=== PATIENT | male | born 1925 | race Caucasian/White ===

== ENCOUNTER 2017-02-23 06:52 | Inpatient (IN) | payer MEDICARE, BC ==
[~2017-02-23 06:52] MED LIST: Lactated Ringers 1,000 ML IV SCH; Lidocaine 1%/Sod Bicarbonate in NS 8.4% 1 ML Syringe IV PRN; Sodium Chloride 0.9% 10 ML Syringe FLUSH PRN
[2017-02-23] MEDS ORDERED: Ropivacaine 0.5% 5 MG/ML 30 ML SDV ONE (07:10)
[2017-02-23] MEDS ORDERED: EPINEPHrine 1:1000 1 MG/ML SDV ONE (07:10)
--- NOTE | 2017-02-23 07:21 | PCM.PREANE ---
Preanesthetic Assessment - Anesthesia/Transfusion/Family Hx Anesthesia History: Prior Anesthesia Without Reaction Family History of Anesthesia Reaction: No Transfusion History: Prior Transfusion Without Reaction Intubation History: Unknown - Review of Systems General: No Symptoms Pulmonary: No Symptoms Cardiovascular: Dyspnea on Exertion (< 4 mets ) Gastrointestinal: No symptoms Neurological: Numbness (left hand, intermittent ) Other: Reports: None (x hypothyroidism ) - Physical Assessment NPO Status Date: 02/22/17 NPO Status Time: 21:00 Pulse: 59 O2 Sat by Pulse Oximetry: 94 Respiratory Rate: 16 Blood Pressure: 153/98 Temperature: 36.0 C Height: 1.73 m Weight: 55.883 kg ASA Class: 3 Mental Status: Alert & Oriented x3 Airway Class: Mallampati = 2 Dentition: Reports: Broken Tooth/Teeth (poor dentition), Missing Tooth/Teeth, Caries Thyro-Mental Finger Breadths: 3 Mouth Opening Finger Breadths: 5 ROM/Head Extension: Full Lungs: Other (diminished throughout ) Cardiovascular: No Murmurs, Bradycardia - Lab Values: Laboratory Last Values MRSA (PCR) Negative 02/11/17 12:27 - Allergies Allergies/Adverse Reactions: Allergies Allergy/AdvReac Type Severity Reaction Status Date / Time SURGICAL SOAP Allergy Rash Uncoded 02/20/17 11:06 - Blood Blood Available: No - Acknowledgements Anesthesia Type Planned: General Anesthesia (with intrascalene block for post op pain control ) Pt an Appropriate Candidate for the Planned Anesthesia: Yes Alternatives and Risks of Anesthesia Discussed w Pt/Guardian: Yes Pt/Guardian Understands and Agrees with Anesthesia Plan: Yes PreAnesthesia Questionnaire HEENT History: Reports: Cataract, Glaucoma, Impaired Vision, Other (See Below) Other HEENT History: wears glasses Cardiovascular History: Reports: Other (See Below) Other Cardiovascular History: chest pain Respiratory History: Reports: None Gastrointestinal History: Reports: Other (See Below) Other Gastrointestinal History: gastric ulcer with hemorrhage Genitourinary History: Reports: None [employer] History: Reports: None Musculoskeletal History: Reports: Osteoarthritis Neurological History: Reports: None Psychiatric History: Reports: None Endocrine/Metabolic History: Reports: Hypothyroidism Hematologic History: Reports: None Immunologic History: Reports: None Oncologic (Cancer) History: Reports: None Dermatologic History: Reports: None - Past Surgical History Head Surgeries/Procedures: Reports: None HEENT Surgical History: Reports: Cataract Surgery GI Surgical History: Reports: Bariatric Procedure, Hernia Repair/Other Musculoskeletal Surgical History: Reports: Shoulder Surgery - SUBSTANCE USE Smoking Status *Q: Never Smoker Second Hand Smoke Exposure: No Recreational Drug Use History: No - HOME MEDS Home Medications: Home Meds Bimatoprost [LUMIGAN 0.01% Ophth Soln] 1 drop EYEBOTH BEDTIME 02/20/17 [History] Levothyroxine [Synthroid] 50 mcg PO DAILY 02/20/17 [History] Pantoprazole Sodium [Protonix] 40 mg PO DAILY 02/20/17 [History] Timolol Maleate 1 drop EYEBOTH DAILY 02/20/17 [History] - CURRENT (IN HOUSE) MEDS Current Meds: Current Medications Lactated Ringer's (Ringers, Lactated) 1,000 mls @ 125 mls/hr IV ASDIRECTED KELLY Lidocaine/Sodium Bicarbonate (Buffered Lidocaine 1% In Ns 8.4%) 0.25 ml IV ONETIME PRN PRN Reason: Prior to IV Start Sodium Chloride (Saline Flush) 10 ml FLUSH ASDIRECTED PRN PRN Reason: Keep Vein Open
[2017-02-23] MEDS ORDERED: Lidocaine 1% 2 ML ONE (07:26)
[2017-02-23] MEDS ORDERED: fentaNYL 100 MCG/2 ML SDV ONE ×2 (07:27→07:47)
[2017-02-23] MEDS ORDERED: Midazolam 1 MG/ML 2 ML SDV ONE (07:27)
[2017-02-23] MEDS ORDERED: Lidocaine 1% 4 ML ONE (07:47)
[2017-02-23] MEDS ORDERED: Rocuronium 50 MG/5 ML Vial ONE (07:47)
[2017-02-23] MEDS ORDERED: Propofol 200 MG/20 ML SDV ONE (07:47)
[2017-02-23] MEDS ORDERED: ceFAZolin 1 GM Vial ONE (07:50)
[2017-02-23] MEDS ORDERED: ePHEDrine/Normal Saline 25 MG/5 ML Syringe ONE ×2 (08:45→09:37)
[2017-02-23] MEDS ORDERED: Lactated Ringers 1,000 ML ONE ×2 (08:55→09:18)
--- NOTE | 2017-02-23 09:14 | PCM.SN ---
- Free Text/Narrative Note: Note: 02/23/2017 0910 158/87 53 98% 11 Surgeon and pt request post-op pain control for left shoulder surgery risk of block failure, facial numbness, site infection, and chronic pain discussed with pt and agreed to proceed. All standard monitors est. EKG, BP, Pulse Ox, 2L O2 and 1ml versed, 1ml fentanyl pre-op dx. left shoulder arthroplasty post-op dx left reverse total shoulder pt for interscalene block placement all standard monitors est. pt ID time out performed IV sedation 1ml versed, 1ml fentanyl, 2L NC O2, sterile prep and drape of left neck and shoulder U/S placed with visualization of brachial plexus from clavicle to cricoid local skin infiltration 22ga. Stimplex A insulated needle visualized at brachial plexus nerve stimulator at .9 Latosha Amps stop at .4 Latosha Amps with good bicep twitch with 1ml NaCl and lose of twitch neg aspirations every 5ml of 0.5% ropivacaine and 1:200,000 epi total of 30ml injected all done with U/S guidance needle withdrawn no complications noted pt tolerated procedure well block settling in start procedure at 0740 end procedure at 0801 125/75 56 99% 12
[2017-02-23] MEDS: Bupivacaine 0.25% 30 ML SDV ONE ×2 (09:20→09:55)
[2017-02-23] MEDS: ceFAZolin 1 GM Vial ONE ×2 (09:21→09:51)
[2017-02-23] MEDS: Iodine/Sodium Iodide 2% Tincture 30 ML Bottle ONE ×2 (09:22→09:49)
[2017-02-23] MEDS ORDERED: Ondansetron 4 MG/2 ML SDV ONE (10:08)
[2017-02-23] MEDS ORDERED: Sennosides 8.6 MG Tab PO PRN (10:11)
[2017-02-23] MEDS ORDERED: Naloxone 0.4 MG/ML SDV IVPUSH PRN (10:11)
[2017-02-23] MEDS ORDERED: Bisacodyl 5 MG Tab PO PRN (10:11)
[2017-02-23] MEDS ORDERED: Morphine 2 MG/ML Syringe IVPUSH PRN (10:11)
[2017-02-23] MEDS ORDERED: Magnesium Hydroxide 400 MG/5 ML Susp 30 ML Cup PO PRN (10:11)
[2017-02-23] MEDS ORDERED: Famotidine 20 MG Tab PO SCH (10:15)
--- NOTE | 2017-02-23 10:38 | CR ---
Left shoulder: Two views of the left shoulder were obtained fluoroscopically utilizing C-arm device. Reverse shoulder prosthesis is seen. Components are aligned. Underlying bony structures appear to be intact. Fluoroscopy time given as 4.1 seconds. Impression: 1. Operative study as noted above. Diagnostic code #2
--- NOTE | 2017-02-23 10:42 | PCM.POSTAN ---
POST ANESTHESIA ASSESSMENT - MENTAL STATUS Mental Status: alert - VITAL SIGNS Pulse Rate: 54 SaO2: 98 Resp Rate: 12 Blood Pressure: 156/78 Temperature: 97.6 C - RESPIRATORY Respiratory Status: respiratory rate WNL, airway patent, O2 saturation stable - CARDIOVASCULAR CV Status: pulse rate WNL, blood pressure stable, slow pulse rate - GASTROINTESTINAL GI Status: no symptoms - PAIN Pain Score: 0 - POST OP HYDRATION Hydration Status: adequate & stable
[2017-02-23] MEDS ORDERED: fentaNYL 100 MCG/2 ML SDV IVPUSH PRN (10:43)
[2017-02-23] MEDS ORDERED: Ondansetron 4 MG/2 ML SDV IVPUSH PRN (10:43)
[2017-02-23] MEDS ORDERED: diphenhydrAMINE 50 MG/ML SDV IVPUSH PRN (10:43)
--- NOTE | 2017-02-23 11:42 | CR ---
Left shoulder: Single AP view of the left shoulder was obtained utilizing portable technique. Comparison: Previous fluoroscopic exam performed earlier on the same day (9:46 AM). Left shoulder prosthesis is seen. Components are aligned. Bony structures are osteopenic. Bony structures appear intact. Impression: 1. Satisfactory appearance of recently placed left shoulder prosthesis. Diagnostic code #2
--- NOTE | 2017-02-23 12:58 | PCM.CONS ---
H&P History of Present Illness - General Date of Service: 02/23/17 Admit Problem/Dx: Admission Diagnosis/Problem Admission Diagnosis/Problem Osteoarthritis of glenohumeral joint S/P RTSA with Dr. Bo this morning. He has rec'd interscalene block for assistance with postop pain control. Pain thus far is under fair control. No nausea. He has asymptomatic bradycardia with rates in the upper 40's to low 50's upon arriving to the floor. B/P is maintained; he is on telemetry. No prior documented hx of bradycardia. Preop HR was 58 Patient is with PMH significant for hypothyroidism, glucoma, past hx of PUD and bariatric surgery. Hospitalist service is consulted for assistance with postoperative medical management. Source of Information: Patient, Old Records, Other (anesthesia and OR notes) History Limitations: Reports: No Limitations - Related Data Allergies/Adverse Reactions: Allergies Allergy/AdvReac Type Severity Reaction Status Date / Time SURGICAL SOAP Allergy Rash Uncoded 02/23/17 08:28 Home Medications: Home Meds Bimatoprost [LUMIGAN 0.01% Ophth Soln] 1 drop EYEBOTH BEDTIME 02/20/17 [History] Levothyroxine [Synthroid] 50 mcg PO DAILY 02/20/17 [History] Pantoprazole Sodium [Protonix] 40 mg PO DAILY 02/20/17 [History] Timolol Maleate 1 drop EYEBOTH DAILY 02/20/17 [History] Past Medical History HEENT History: Reports: Cataract, Glaucoma, Impaired Vision, Other (See Below) Other HEENT History: wears glasses Cardiovascular History: Reports: Other (See Below) Other Cardiovascular History: chest pain Respiratory History: Reports: None Gastrointestinal History: Reports: Other (See Below) Other Gastrointestinal History: gastric ulcer with hemorrhage Genitourinary History: Reports: None [employer] History: Reports: None Musculoskeletal History: Reports: Osteoarthritis Neurological History: Reports: None Psychiatric History: Reports: None Endocrine/Metabolic History: Reports: Hypothyroidism Hematologic History: Reports: None Immunologic History: Reports: None Oncologic (Cancer) History: Reports: None Dermatologic History: Reports: None - Past Surgical History Head Surgeries/Procedures: Reports: None HEENT Surgical History: Reports: Cataract Surgery GI Surgical History: Reports: Bariatric Procedure, Hernia Repair/Other Musculoskeletal Surgical History: Reports: Shoulder Surgery Social & Family History - Tobacco Use Smoking Status *Q: Never Smoker Second Hand Smoke Exposure: No - Recreational Drug Use Recreational Drug Use: No H&P Review of Systems - Review of Systems: Review Of Systems: See Below General: Reports: No Symptoms HEENT: Reports: No Symptoms Pulmonary: Reports: No Symptoms. Denies: Shortness of Breath, Cough Cardiovascular: Reports: No Symptoms. Denies: Chest Pain, Palpitations, Dyspnea on Exertion, Lightheadedness Gastrointestinal: Reports: No Symptoms. 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) Psychiatric: Reports: No Symptoms, Confusion (mild confusion) Neurological: Reports: No Symptoms Exam - Exam Exam: See Below - Vital Signs Vital Signs: Last Vital Signs Temp 97.5 F 02/23/17 11:59 Pulse 47 L 02/23/17 11:59 Resp 14 02/23/17 11:59 BP 141/86 H 02/23/17 11:59 Pulse Ox 95 02/23/17 11:59 Weight: 123 lb 3.2 oz - Exam Quality Assessment: DVT Prophylaxis General: Alert, Oriented, Cooperative HEENT: Conjunctiva Clear, EOMI, Hearing Intact, Mucosa Moist & Pyatt, Pupils Equal, Pupils Reactive, PERRLA Neck: Supple Lungs: Clear to Auscultation, Normal Respiratory Effort, Decreased Breath Sounds (bases bilat) Cardiovascular: Regular Rate, Regular Rhythm, Bradycardia Abdomen: Normal Bowel Sounds, Soft. No: Distention, Guarding, Rigidity, Rebound , Tenderness Rectal (Males) Exam: Deferred Extremities: Normal Pulses, Other (lt arm in immobilizer). No: Edema Peripheral Pulses: 1+: Dorsalis Pedis (L), Dorsalis Pedis (R), 2+: Radial (L), Radial (R) Skin: Warm, Dry Neuro Extensive - Mental Status: Alert, Oriented x3, Normal Mood/Affect Neuro Extensive - Motor, Sensory, Reflexes: CN II-XII Intact Psychiatric: Alert, Normal Affect, Normal Mood Consult PN Assessment/Plan POD#: 0 Procedures: Procedures CONTRST X-RAY UPPR GI TRACT (06/26/15) (1) S/p reverse total shoulder arthroplasty SNOMED Code(s): 974444359, 407899709 Code(s): Z96.619 - PRESENCE OF UNSPECIFIED ARTIFICIAL SHOULDER JOINT Priority: High Current Visit: Yes Qualifiers: Laterality: left Qualified Code(s): Z96.612 - Presence of left artificial shoulder joint (2) Osteoarthritis SNOMED Code(s): 661496036 Code(s): M19.90 - UNSPECIFIED OSTEOARTHRITIS, UNSPECIFIED SITE Priority: High Current Visit: Yes Qualifiers: Osteoarthritis location: shoulder Osteoarthritis type: primary Laterality : left Qualified Code(s): M19.012 - Primary osteoarthritis, left shoulder (3) Bradycardia by electrocardiogram SNOMED Code(s): 319219283 Code(s): R00.1 - BRADYCARDIA, UNSPECIFIED Priority: High Current Visit: Yes (4) Hypothyroidism SNOMED Code(s): 32323276 Code(s): E03.9 - HYPOTHYROIDISM, UNSPECIFIED Priority: Medium Current Visit: No Qualifiers: Hypothyroidism type: unspecified Qualified Code(s): E03.9 - Hypothyroidism , unspecified (5) Hx of gastric ulcer SNOMED Code(s): 440930709 Code(s): Z87.19 - PERSONAL HISTORY OF OTHER DISEASES OF THE DIGESTIVE SYSTEM Priority: Medium Current Visit: No Problem List Initiated/Reviewed/Updated: Yes Plan: I/P: S/P RTSA with Dr. Bo: POD #0 -Pain managment and DVT prophylax per ortho; also had interscalene block -PT/OT -IS -Follow am labs Bradycardia -Patient had preoperative HR of 58; was 44 in PACU now running high 40's low 50's; patient is asymptomatic and maintaining b/p -Cont close monitoring on telemetry -Add Mag level to labs Hx of PUD -Caution with ASA as anticoag -Cont home PPI daily Chronic conditions: Hypothyroid- cont home med Glaucoma- cont home meds Other: GI/DVT prophylax as above PT/OT CM/SW for assist with DC planning; plans DC home with family care Patient is Full Code status. Requesting Provider: rell Date Consult Requested: 02/23/17 Patient History Reviewed: Yes
[2017-02-23] MEDS ORDERED: Sodium Chloride 0.9% 10 ML Syringe FLUSH PRN (13:37)
[2017-02-23] MEDS ORDERED: Diphtheria,Pertussis(Acell),Tetanus Vaccine 0.5 ML SDV inactive IM ONE (15:17)
[2017-02-23] MEDS: ceFAZolin 2 GM in Premix Bag 1 BAG IV SCH (15:42)
[2017-02-23] MEDS: Acetaminophen/HYDROcodone 325-5 MG Tab PO PRN (15:43)
[2017-02-23] MEDS ORDERED: Latanoprost 0.005% Ophth Soln 2.5 ML Bottle EYEBOTH SCH (21:00)
[2017-02-23] MEDS: Docusate Sodium 100 MG Cap PO SCH (21:05)
[2017-02-24] MEDS: ceFAZolin 2 GM in Premix Bag 1 BAG IV SCH ×2 (00:33→09:51)
[2017-02-24] MEDS: Acetaminophen/HYDROcodone 325-5 MG Tab PO PRN ×3 (00:44→10:16)
[2017-02-24] MEDS ORDERED: Levothyroxine 50 MCG Tab PO SCH (06:00)
[2017-02-24] MEDS ORDERED: Pantoprazole 40 MG Tab.CR PO SCH (07:00)
[2017-02-24] MEDS ORDERED: Multivitamins,Therapeutic Tab PO SCH (07:00)
[2017-02-24] MEDS ORDERED: Aspirin 325 MG Tab.EC PO SCH (09:00)
[2017-02-24] MEDS ORDERED: TIMOLOL MALEATE 0.5% EYEBOTH SCH (09:00)
[2017-02-24] MEDS: Docusate Sodium 100 MG Cap PO SCH (09:49)
--- NOTE | 2017-02-24 10:14 | PCM48HPAN ---
Post Anesthesia Note - EVALUATION WITHIN 48HRS OF ANESTHETIC Vital Signs in Normal Range: Yes Patient Participated in Evaluation: Yes Respiratory Function Stable: Yes Airway Patent: Yes Cardiovascular Function Stable: Yes Hydration Status Stable: Yes Pain Control Satisfactory: Yes (taking pain pills) Nausea and Vomiting Control Satisfactory: Yes Mental Status Recovered: Yes
[2017-02-24 11:59] VITALS: BP 104/61
--- NOTE | 2017-02-24 12:36 | PCM.CONSN ---
- General Info Date of Service: 02/24/17 Admission Dx/Problem (Free Text): Admission Diagnosis/Problem Admission Diagnosis/Problem Osteoarthritis of glenohumeral joint S/P RTSA with Dr. Bo POD #1. He has rec'd interscalene block for assistance with postop pain control. Sensation to hand/arm has returned. Pain is under good control. Good appetite, voiding without problems. Worked with PT/OT this am. Bradycardia resolved with rates in 60-70's no abnormalities noted on telemetry. Plans for DC home today with family to assist at home. Functional Status: Reports: pain controlled, tolerating diet, ambulating, urinating. Denies: new symptoms - Review of Systems General: Reports: No Symptoms HEENT: Reports: no symptoms Pulmonary: Reports: no symptoms. Denies: shortness of breath, cough Cardiovascular: Reports: No Symptoms. Denies: Chest Pain, Palpitations Gastrointestinal: Reports: No symptoms Genitourinary: Reports: no symptoms. Denies: retention Musculoskeletal: Reports: shoulder pain Neurological: Reports: No Symptoms Psychiatric: Reports: no symptoms - Patient Data Vitals - most recent: Last Vital Signs Temp 99.0 F 02/24/17 11:57 Pulse 61 02/24/17 11:57 Resp 15 02/24/17 11:57 BP 104/61 02/24/17 11:57 Pulse Ox 96 02/24/17 11:57 Weight - most recent: 130 lb 1.6 oz I&O - last 24 hours: Intake & Output 02/23/17 02/24/17 02/24/17 22:59 06:59 14:59 Intake Total 660 600 120 Output Total 450 250 Balance 210 600 -130 Lab Results last 24 hrs: Laboratory Results - last 24 hr 02/24/17 02/24/17 Range/Units 05:57 05:57 WBC 8.42 (4.23-9.07) K/mm3 RBC 4.02 L (4.63-6.08) M/mm3 Hgb 12.2 L (13.7-17.5) gm/L Hct 36.9 L (40.1-51.0) % MCV 91.8 (79.0-92.2) fl MCH 30.3 (25.7-32.2) pg MCHC 33.1 (32.2-35.5) g/dl RDW Std Deviation 49.2 H (35.1-43.9) fL Plt Count 282 (163-337) K/mm3 MPV 9.7 (9.4-12.3) fl Neut % (Auto) 72.9 H (34.0-67.9) % Lymph % (Auto) 12.4 L (21.8-53.1) % Spencer % (Auto) 13.9 H (5.3-12.2) % Eos % (Auto) 0.7 L (0.8-7.0) Baso % (Auto) 0.1 (0.1-1.2) % Neut # (Auto) 6.14 H (1.78-5.38) K/mm3 Lymph # (Auto) 1.04 L (1.32-3.57) K/mm3 Spencer # (Auto) 1.17 H (0.30-0.82) K/mm3 Eos # (Auto) 0.06 (0.04-0.54) K/mm3 Baso # (Auto) 0.01 (0.01-0.08) K/mm3 Sodium 143 (136-145) mEq/L Potassium 5.1 (3.5-5.1) mEq/L Chloride 108 H (98-107) mEq/L Carbon Dioxide 28 (21-32) mEq/L Anion Gap 12.1 (5-15) BUN 18 (7-18) mg/dL Creatinine 1.2 (0.7-1.3) mg/dL Est Cr Clr Drug Dosing 34.83 mL/min Estimated GFR (MDRD) 57 (>60) mL/min BUN/Creatinine Ratio 15.0 (14-18) Glucose 123 H (83-115) mg/dL Calcium 8.5 (8.5-10.1) mg/dL Total Bilirubin 0.5 (0.2-1.0) mg/dL AST 34 (15-37) U/L ALT 29 (16-63) U/L Alkaline Phosphatase 90 (46-116) U/L Total Protein 5.7 L (6.4-8.2) g/dl Albumin 2.7 L (3.4-5.0) g/dl Globulin 3.0 gm/dL Albumin/Globulin Ratio 0.9 L (1-2) Med Orders - Current: Current Medications Hydrocodone Bitart/Acetaminophen ([place] 325-5 Mg) 1 - 2 tab PO Q4H PRN PRN Reason: Pain Last Admin: 02/24/17 10:16 Dose: 1 tab Aspirin (Ecotrin) 325 mg PO DAILY [facility] Last Admin: 02/24/17 09:49 Dose: 325 mg Bisacodyl (Dulcolax) 5 mg PO DAILY PRN PRN Reason: Constipation Docusate Sodium (Colace) 100 mg PO BID [facility] Last Admin: 02/24/17 09:49 Dose: 100 mg Latanoprost (Xalatan 0.005% Ophth Soln) 0 ml EYEBOTH BEDTIME [facility] Last Admin: 02/23/17 21:05 Dose: 1 drop Levothyroxine Sodium (Synthroid) 50 mcg PO ACBREAKFAST [facility] Last Admin: 02/24/17 06:40 Dose: 50 mcg Lidocaine/Sodium Bicarbonate (Buffered Lidocaine 1% In Ns 8.4%) 0.25 ml IV ONETIME PRN PRN Reason: Prior to IV Start Last Admin: 02/23/17 07:39 Dose: 0.25 ml Magnesium Hydroxide (Milk Of Magnesia) 30 ml PO BID PRN PRN Reason: Constipation Morphine Sulfate (Morphine) 2 mg IVPUSH Q2H PRN PRN Reason: Breakthrough Pain Multivitamins (Thera) 1 each PO WITHBREAKFAST [facility] Last Admin: 02/24/17 06:40 Dose: 1 each Pantoprazole Sodium (Protonix) 40 mg PO DAILY@0700 [facility] Last Admin: 02/24/17 06:41 Dose: 40 mg Senna (Senna) 8.6 mg PO BID PRN PRN Reason: Constipation Sodium Chloride (Saline Flush) 10 ml FLUSH ASDIRECTED PRN PRN Reason: Keep Vein Open Timolol Maleate (Timoptic-Xe 0.5% Ophth Gel) 0 ml EYEBOTH BEDTIME [facility] Last Admin: 02/24/17 10:15 Dose: 1 drop Discontinued Medications Bupivacaine HCl (Marcaine 0.25%) Confirm Administered Dose 30 ml .ROUTE .STK- MED ONE Stop: 02/23/17 07:52 Last Admin: 02/23/17 09:55 Dose: 30 ml Cefazolin Sodium (Ancef) Confirm Administered Dose 2 gm .ROUTE .STK-MED ONE Stop: 02/23/17 07:52 Last Admin: 02/23/17 09:51 Dose: 2 gm Cefazolin Sodium (Ancef) Confirm Administered Dose 2 gm .ROUTE .STK-MED ONE Stop: 02/23/17 07:51 Diphenhydramine HCl (Benadryl) 12.5 mg IVPUSH Q6H PRN PRN Reason: pruritis Stop: 02/23/17 13:00 Diphtheria/Tetanus/Acell Pertussis (Boostrix) 0.5 ml IM .ONCE ONE Stop: 02/23/17 15:18 Ephedrine Sulfate (Ephedrine In Ns) Confirm Administered Dose 25 mg .ROUTE .STK- MED ONE Stop: 02/23/17 08:46 Ephedrine Sulfate (Ephedrine In Ns) Confirm Administered Dose 25 mg .ROUTE .STK- MED ONE Stop: 02/23/17 09:38 Epinephrine HCl (Adrenalin 1:1000) Confirm Administered Dose 1 mg .ROUTE .STK- MED ONE Stop: 02/23/17 07:11 Famotidine (Pepcid) 20 mg PO Q12H [facility] Last Admin: 02/23/17 13:37 Dose: Not Given Fentanyl (Sublimaze) Confirm Administered Dose 100 mcg .ROUTE .STK-MED ONE Stop: 02/23/17 07:28 Fentanyl (Sublimaze) Confirm Administered Dose 100 mcg .ROUTE .STK-MED ONE Stop: 02/23/17 07:48 Fentanyl (Sublimaze) 50 mcg IVPUSH Q5M PRN PRN Reason: Pain Stop: 02/23/17 13:00 Lactated Ringer's (Ringers, Lactated) 1,000 mls @ 125 mls/hr IV ASDIRECTED [facility] Last Admin: 02/23/17 07:39 Dose: 125 mls/hr Lidocaine HCl (Xylocaine-Mpf 1%) Confirm Administered Dose 2 mls @ as directed .ROUTE .STK-MED ONE Stop: 02/23/17 07:27 Lidocaine HCl (Xylocaine-Mpf 1%) Confirm Administered Dose 4 mls @ as directed .ROUTE .STK-MED ONE Stop: 02/23/17 07:48 Lactated Ringer's (Ringers, Lactated) Confirm Administered Dose 1,000 mls @ as directed .ROUTE .STK-MED ONE Stop: 02/23/17 08:56 Lactated Ringer's (Ringers, Lactated) Confirm Administered Dose 1,000 mls @ as directed .ROUTE .STK-MED ONE Stop: 02/23/17 09:19 Cefazolin Sodium/Dextrose 2 gm (/ Premix) 50 mls @ 100 mls/hr IV Q8H KELLY Stop: 02/24/17 08:29 Last Admin: 02/24/17 09:51 Dose: 100 mls/hr Iodine (Iodine 2% Mild Tincture) Confirm Administered Dose 30 ml .ROUTE .STK- MED ONE Stop: 02/23/17 07:52 Last Admin: 02/23/17 09:49 Dose: 18 ml Midazolam HCl (Versed 1 Mg/Ml) Confirm Administered Dose 2 mg .ROUTE .STK-MED ONE Stop: 02/23/17 07:28 Naloxone HCl (Narcan) 0.1 mg IVPUSH Q5M PRN PRN Reason: Oversedation Stop: 02/23/17 10:27 Ondansetron HCl (Zofran) Confirm Administered Dose 4 mg .ROUTE .STK-MED ONE Stop: 02/23/17 10:09 Ondansetron HCl (Zofran) 4 mg IVPUSH ONETIME PRN PRN Reason: Nausea/Vomiting Stop: 02/23/17 13:00 Propofol (Diprivan 20 Ml) Confirm Administered Dose 200 mg .ROUTE .STK-MED ONE Stop: 02/23/17 07:48 Rocuronium [place] (Zemuron) Confirm Administered Dose 50 mg .ROUTE .STK-MED ONE Stop: 02/23/17 07:48 Ropivacaine (Naropin 0.5%) Confirm Administered Dose 30 ml .ROUTE .STK-MED ONE Stop: 02/23/17 07:11 Sodium Chloride (Saline Flush) 10 ml FLUSH ASDIRECTED PRN PRN Reason: Keep Vein Open Stop: 02/23/17 23:00 Tranexamic Acid (Cyklokapron) Confirm Administered Dose 1,000 mg .ROUTE .STK- MED ONE Stop: 02/23/17 07:51 Last Admin: 02/23/17 10:03 Dose: 1,000 mg - Exam Quality Assessment: DVT prophylaxis General: alert, oriented, cooperative, no acute distress HEENT: Pupils equal, Pupils reactive, EOMI, Mucous membr. 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)) Peripheral Pulses: 2+: Radial (L), Radial (R) Skin: warm, dry Neurological: no new focal deficit Psy/Mental Status: alert, normal affect, normal mood Consult PN Assessment/Plan POD#: 1 Procedures: Procedures CONTRST X-RAY UPPR GI TRACT (06/26/15) (1) S/p reverse total shoulder arthroplasty SNOMED Code(s): 349995695, 544382331 Code(s): Z96.619 - PRESENCE OF UNSPECIFIED ARTIFICIAL SHOULDER JOINT Priority: High Current Visit: Yes Qualifiers: Laterality: left Qualified Code(s): Z96.612 - Presence of left artificial shoulder joint (2) Osteoarthritis SNOMED Code(s): 326490910 Code(s): M19.90 - UNSPECIFIED OSTEOARTHRITIS, UNSPECIFIED SITE Priority: High Current Visit: Yes Qualifiers: Osteoarthritis location: shoulder Osteoarthritis type: primary Laterality : left Qualified Code(s): M19.012 - Primary osteoarthritis, left shoulder (3) Bradycardia by electrocardiogram SNOMED Code(s): 539464130 Code(s): R00.1 - BRADYCARDIA, UNSPECIFIED Priority: High Current Visit: Yes (4) Hypothyroidism SNOMED Code(s): 65742754 Code(s): E03.9 - HYPOTHYROIDISM, UNSPECIFIED Priority: Medium Current Visit: No Qualifiers: Hypothyroidism type: unspecified Qualified Code(s): E03.9 - Hypothyroidism , unspecified (5) Hx of gastric ulcer SNOMED Code(s): 874515853 Code(s): Z87.19 - PERSONAL HISTORY OF OTHER DISEASES OF THE DIGESTIVE SYSTEM Priority: Medium Current Visit: No Problem List Initiated/Reviewed/Updated: Yes My Orders last 24 hours: My Active Orders 02/23/17 13:40 Patient Status [ADT] Routine Plan: I/P: S/P RTSA with Dr. Bo: POD #2 -Pain managment and DVT prophylax per ortho; also had interscalene block -PT/OT -IS -hgb 12.2 today; other labs stable -VSS; on RA Bradycardia---resolved -Patient had preoperative HR of 58; was 44 in PACU, yesterday afternoon running high 40's low 50's; patient is asymptomatic and maintaining b/p -Cont close monitoring on telemetry -Add Mag level to labs--WNL Hx of PUD -Caution with ASA as anticoag -Cont home PPI daily Chronic conditions: Hypothyroid- cont home med Glaucoma- cont home meds Other: GI/DVT prophylax as above PT/OT CM/SW for assist with DC planning; plans DC home with family care--OK from hospitalist standpoint for DC today, is medically stable. Patient is Full Code status.
[2017-02-24] MEDS ORDERED: Diphtheria,Pertussis(Acell),Tetanus Vaccine 0.5 ML SDV inactive IM ONE (14:45)
--- NOTE | 2017-02-24 17:03 | PCM.SURGPN ---
- General Info Date of Service: 02/24/17 POD#: 1 Functional Status: Reports: pain controlled, tolerating diet, ambulating, urinating. Denies: new symptoms - Review of Systems Musculoskeletal: Reports: other (The pt has met inpatient therapy goals.) - Patient Data Vitals - most recent: Last Vital Signs Temp 99.0 F 02/24/17 11:57 Pulse 61 02/24/17 11:57 Resp 15 02/24/17 11:57 BP 104/61 02/24/17 11:57 Pulse Ox 96 02/24/17 11:57 Weight - most recent: 130 lb 1.6 oz I&O - last 24 hours: Intake & Output 02/24/17 02/24/17 02/24/17 06:59 14:59 22:59 Intake Total 600 320 Output Total 250 Balance 600 70 Lab Results last 24 hrs: Laboratory Results - last 24 hr 02/24/17 02/24/17 Range/Units 05:57 05:57 WBC 8.42 (4.23-9.07) K/mm3 RBC 4.02 L (4.63-6.08) M/mm3 Hgb 12.2 L (13.7-17.5) gm/L Hct 36.9 L (40.1-51.0) % MCV 91.8 (79.0-92.2) fl MCH 30.3 (25.7-32.2) pg MCHC 33.1 (32.2-35.5) g/dl RDW Std Deviation 49.2 H (35.1-43.9) fL Plt Count 282 (163-337) K/mm3 MPV 9.7 (9.4-12.3) fl Neut % (Auto) 72.9 H (34.0-67.9) % Lymph % (Auto) 12.4 L (21.8-53.1) % Hartley % (Auto) 13.9 H (5.3-12.2) % Eos % (Auto) 0.7 L (0.8-7.0) Baso % (Auto) 0.1 (0.1-1.2) % Neut # (Auto) 6.14 H (1.78-5.38) K/mm3 Lymph # (Auto) 1.04 L (1.32-3.57) K/mm3 Hartley # (Auto) 1.17 H (0.30-0.82) K/mm3 Eos # (Auto) 0.06 (0.04-0.54) K/mm3 Baso # (Auto) 0.01 (0.01-0.08) K/mm3 Sodium 143 (136-145) mEq/L Potassium 5.1 (3.5-5.1) mEq/L Chloride 108 H (98-107) mEq/L Carbon Dioxide 28 (21-32) mEq/L Anion Gap 12.1 (5-15) BUN 18 (7-18) mg/dL Creatinine 1.2 (0.7-1.3) mg/dL Est Cr Clr Drug Dosing 34.83 mL/min Estimated GFR (MDRD) 57 (>60) mL/min BUN/Creatinine Ratio 15.0 (14-18) Glucose 123 H (83-115) mg/dL Calcium 8.5 (8.5-10.1) mg/dL Total Bilirubin 0.5 (0.2-1.0) mg/dL AST 34 (15-37) U/L ALT 29 (16-63) U/L Alkaline Phosphatase 90 (46-116) U/L Total Protein 5.7 L (6.4-8.2) g/dl Albumin 2.7 L (3.4-5.0) g/dl Globulin 3.0 gm/dL Albumin/Globulin Ratio 0.9 L (1-2) Med Orders - Current: Current Medications Hydrocodone Bitart/Acetaminophen ([place] 325-5 Mg) 1 - 2 tab PO Q4H PRN PRN Reason: Pain Last Admin: 02/24/17 10:16 Dose: 1 tab Aspirin (Ecotrin) 325 mg PO DAILY [facility] Last Admin: 02/24/17 09:49 Dose: 325 mg Bisacodyl (Dulcolax) 5 mg PO DAILY PRN PRN Reason: Constipation Docusate Sodium (Colace) 100 mg PO BID [facility] Last Admin: 02/24/17 09:49 Dose: 100 mg Latanoprost (Xalatan 0.005% Ophth Soln) 0 ml EYEBOTH BEDTIME [facility] Last Admin: 02/23/17 21:05 Dose: 1 drop Levothyroxine Sodium (Synthroid) 50 mcg PO ACBREAKFAST [facility] Last Admin: 02/24/17 06:40 Dose: 50 mcg Lidocaine/Sodium Bicarbonate (Buffered Lidocaine 1% In Ns 8.4%) 0.25 ml IV ONETIME PRN PRN Reason: Prior to IV Start Last Admin: 02/23/17 07:39 Dose: 0.25 ml Magnesium Hydroxide (Milk Of Magnesia) 30 ml PO BID PRN PRN Reason: Constipation Morphine Sulfate (Morphine) 2 mg IVPUSH Q2H PRN PRN Reason: Breakthrough Pain Multivitamins (Thera) 1 each PO WITHBREAKFAST [facility] Last Admin: 02/24/17 06:40 Dose: 1 each Pantoprazole Sodium (Protonix) 40 mg PO DAILY@0700 [facility] Last Admin: 02/24/17 06:41 Dose: 40 mg Senna (Senna) 8.6 mg PO BID PRN PRN Reason: Constipation Sodium Chloride (Saline Flush) 10 ml FLUSH ASDIRECTED PRN PRN Reason: Keep Vein Open Timolol Maleate (Timoptic-Xe 0.5% Ophth Gel) 0 ml EYEBOTH BEDTIME [facility] Last Admin: 02/24/17 10:15 Dose: 1 drop Discontinued Medications Bupivacaine HCl (Marcaine 0.25%) Confirm Administered Dose 30 ml .ROUTE .STK- MED ONE Stop: 02/23/17 07:52 Last Admin: 02/23/17 09:55 Dose: 30 ml Cefazolin Sodium (Ancef) Confirm Administered Dose 2 gm .ROUTE .STK-MED ONE Stop: 02/23/17 07:52 Last Admin: 02/23/17 09:51 Dose: 2 gm Cefazolin Sodium (Ancef) Confirm Administered Dose 2 gm .ROUTE .STK-MED ONE Stop: 02/23/17 07:51 Diphenhydramine HCl (Benadryl) 12.5 mg IVPUSH Q6H PRN PRN Reason: pruritis Stop: 02/23/17 13:00 Diphtheria/Tetanus/Acell Pertussis (Boostrix) 0.5 ml IM .ONCE ONE Stop: 02/23/17 15:18 Diphtheria/Tetanus/Acell Pertussis (Boostrix) 0.5 ml IM .ONCE ONE Stop: 02/24/17 14:46 Last Admin: 02/24/17 14:52 Dose: 0.5 ml Ephedrine Sulfate (Ephedrine In Ns) Confirm Administered Dose 25 mg .ROUTE .STK- MED ONE Stop: 02/23/17 08:46 Ephedrine Sulfate (Ephedrine In Ns) Confirm Administered Dose 25 mg .ROUTE .STK- MED ONE Stop: 02/23/17 09:38 Epinephrine HCl (Adrenalin 1:1000) Confirm Administered Dose 1 mg .ROUTE .STK- MED ONE Stop: 02/23/17 07:11 Famotidine (Pepcid) 20 mg PO Q12H [facility] Last Admin: 02/23/17 13:37 Dose: Not Given Fentanyl (Sublimaze) Confirm Administered Dose 100 mcg .ROUTE .STK-MED ONE Stop: 02/23/17 07:28 Fentanyl (Sublimaze) Confirm Administered Dose 100 mcg .ROUTE .STK-MED ONE Stop: 02/23/17 07:48 Fentanyl (Sublimaze) 50 mcg IVPUSH Q5M PRN PRN Reason: Pain Stop: 02/23/17 13:00 Lactated Ringer's (Ringers, Lactated) 1,000 mls @ 125 mls/hr IV ASDIRECTED [facility] Last Admin: 02/23/17 07:39 Dose: 125 mls/hr Lidocaine HCl (Xylocaine-Mpf 1%) Confirm Administered Dose 2 mls @ as directed .ROUTE .STK-MED ONE Stop: 02/23/17 07:27 Lidocaine HCl (Xylocaine-Mpf 1%) Confirm Administered Dose 4 mls @ as directed .ROUTE .STK-MED ONE Stop: 02/23/17 07:48 Lactated Ringer's (Ringers, Lactated) Confirm Administered Dose 1,000 mls @ as directed .ROUTE .STK-MED ONE Stop: 02/23/17 08:56 Lactated Ringer's (Ringers, Lactated) Confirm Administered Dose 1,000 mls @ as directed .ROUTE .STK-MED ONE Stop: 02/23/17 09:19 Cefazolin Sodium/Dextrose 2 gm (/ Premix) 50 mls @ 100 mls/hr IV Q8H [facility] Stop: 02/24/17 08:29 Last Admin: 02/24/17 09:51 Dose: 100 mls/hr Iodine (Iodine 2% Mild Tincture) Confirm Administered Dose 30 ml .ROUTE .STK- MED ONE Stop: 02/23/17 07:52 Last Admin: 02/23/17 09:49 Dose: 18 ml Midazolam HCl (Versed 1 Mg/Ml) Confirm Administered Dose 2 mg .ROUTE .STK-MED ONE Stop: 02/23/17 07:28 Naloxone HCl (Narcan) 0.1 mg IVPUSH Q5M PRN PRN Reason: Oversedation Stop: 02/23/17 10:27 Ondansetron HCl (Zofran) Confirm Administered Dose 4 mg .ROUTE .STK-MED ONE Stop: 02/23/17 10:09 Ondansetron HCl (Zofran) 4 mg IVPUSH ONETIME PRN PRN Reason: Nausea/Vomiting Stop: 02/23/17 13:00 Propofol (Diprivan 20 Ml) Confirm Administered Dose 200 mg .ROUTE .STK-MED ONE Stop: 02/23/17 07:48 Rocuronium [place] (Zemuron) Confirm Administered Dose 50 mg .ROUTE .STK-MED ONE Stop: 02/23/17 07:48 Ropivacaine (Naropin 0.5%) Confirm Administered Dose 30 ml .ROUTE .STK-MED ONE Stop: 02/23/17 07:11 Sodium Chloride (Saline Flush) 10 ml FLUSH ASDIRECTED PRN PRN Reason: Keep Vein Open Stop: 02/23/17 23:00 Tranexamic Acid (Cyklokapron) Confirm Administered Dose 1,000 mg .ROUTE .STK- MED ONE Stop: 02/23/17 07:51 Last Admin: 02/23/17 10:03 Dose: 1,000 mg - Exam Wound/Incisions: dressing dry and intact General: alert, cooperative, no acute distress Lungs: Normal respiratory effort Extremities: normal pulses, no calf tenderness, other (NVS intact for BUE.) - Problem List Review Problem List Initiated/Reviewed/Updated: Yes - My Orders Last 24 Hours: Active Orders 24 hr Category Date Time Status Ready for Discharge [RC] PER UNIT ROUTINE Care 02/24/17 12:52 Active Aspirin [Ecotrin] Med 02/24/17 09:00 Active 325 mg PO DAILY Docusate Sodium [Colace] Med 02/23/17 21:00 Active 100 mg PO BID Latanoprost [Xalatan 0.005% Ophth Soln] Med 02/23/17 21:00 Active 0 ml EYEBOTH BEDTIME Levothyroxine [Synthroid] Med 02/24/17 06:00 Active 50 mcg PO ACBREAKFAST Multivitamins,Therapeutic [Thera] Med 02/24/17 07:00 Active 1 each PO WITHBREAKFAST Pantoprazole [ProTONIX] Med 02/24/17 07:00 Active 40 mg PO DAILY@0700 Timolol Maleate [Timoptic-XE 0.5% Ophth Gel] Med 02/24/17 09:00 Active 0 ml EYEBOTH BEDTIME Medication Orders Hydrocodone Bitart/Acetaminophen ([place] 325-5 Mg) 1 - 2 tab PO Q4H PRN PRN Reason: Pain Last Admin: 02/24/17 10:16 Dose: 1 tab Admin: 02/24/17 06:41 Dose: 1 tab Admin: 02/24/17 00:44 Dose: 1 tab Admin: 02/23/17 15:43 Dose: 2 tab Aspirin (Ecotrin) 325 mg PO DAILY [facility] Last Admin: 02/24/17 09:49 Dose: 325 mg Bisacodyl (Dulcolax) 5 mg PO DAILY PRN PRN Reason: Constipation Docusate Sodium (Colace) 100 mg PO BID [facility] Last Admin: 02/24/17 09:49 Dose: 100 mg Admin: 02/23/17 21:05 Dose: 100 mg Latanoprost (Xalatan 0.005% Oph Soln) 0 ml EYEBOTH BEDTIME [facility] Last Admin: 02/23/17 21:05 Dose: 1 drop Levothyroxine Sodium (Synthroid) 50 mcg PO ACBREAKFAST [facility] Last Admin: 02/24/17 06:40 Dose: 50 mcg Lidocaine/Sodium Bicarbonate (Buffered Lidocaine 1% In Ns 8.4%) 0.25 ml IV ONETIME PRN PRN Reason: Prior to IV Start Last Admin: 02/23/17 07:39 Dose: 0.25 ml Magnesium Hydroxide (Milk Of Magnesia) 30 ml PO BID PRN PRN Reason: Constipation Morphine Sulfate (Morphine) 2 mg IVPUSH Q2H PRN PRN Reason: Breakthrough Pain Multivitamins (Thera) 1 each PO WITHBREAKFAST [facility] Last Admin: 02/24/17 06:40 Dose: 1 each Pantoprazole Sodium (Protonix) 40 mg PO DAILY@0700 [facility] Last Admin: 02/24/17 06:41 Dose: 40 mg Senna (Senna) 8.6 mg PO BID PRN PRN Reason: Constipation Sodium Chloride (Saline Flush) 10 ml FLUSH ASDIRECTED PRN PRN Reason: Keep Vein Open Timolol Maleate (Timoptic-Xe 0.5% Ophth Gel) 0 ml EYEBOTH BEDTIME [facility] Last Admin: 02/24/17 10:15 Dose: 1 drop - Assessment Assessment (Free Text/Narrative):: POD#1 - left reverse total shoulder arthroplasty - Plan Plan (Free Text/Narrative):: 1. Hgb 12.2 today. 2. Discharge to home today. The pt will have the assistance of family members. 3. F/U at outpatient Clinic next week. 4. Further orders per Hospitalist service. Dr. Bo evaluated the pt today.
--- NOTE | 2017-02-26 13:00 | PCM.OPNOTE ---
- General Post-Op/Procedure Note Date of Surgery/Procedure: 02/23/17 Operative Procedure(s): left reverse total shoulder arthroplasty Pre Op Diagnosis: left shoulder rotator cuff tear arthropathy Post-Op Diagnosis: Same Anesthesia Technique: General ET tube, Regional block Primary Surgeon: Rahul Bo Anesthesia Provider: Fidelina Walls Technical Project Coordinator: Annabel Jj Technical Project Coordinator: Flora Carranza EBL in mLs: 100 Complications: None Condition: Good
--- NOTE | 2017-02-26 14:08 | OR ---
DATE OF OPERATION: 02/23/2017 SURGEON: Rahul Bo MD OPERATION PERFORMED: Left reverse total shoulder arthroplasty. PREOPERATIVE DIAGNOSIS: Left shoulder rotator cuff tear arthropathy. POSTOPERATIVE DIAGNOSIS: Left shoulder rotator cuff tear arthropathy. ANESTHESIA: General endotracheal intubation with regional block. ANESTHESIA PROVIDER: Fidelina Walls CRNA. VIDEOGAME DESIGNER: Annabel Jj PA-C and Flora Carranza LPN. ESTIMATED BLOOD LOSS: 100 mL. COMPLICATIONS: None. CONDITION: Stable. DESCRIPTION OF PROCEDURE: The patient was identified in the preop holding area. Proper site was marked and identified by the surgeon. The patient was taken back to the operating theater where after adequate anesthesia, the patient's left upper extremity was then sterilely prepped and draped in the usual sterile fashion. OR time-out was performed. The patient received 2 g IV Ancef. The patient was placed in a reverse Trendelenburg position. At this time, standard deltopectoral incision was made centered over the coracoid. Blunt dissection was taken down. Cephalic vein was identified and was retracted laterally. Blunt dissection through the interval was taken down to the clavipectoral fascia which was incised. The anterior humeral circumflex vessels were then identified and ligated. Biceps tendon was then identified and was brought out through the bicipital groove. Subpectoral tenodesis was then performed and the biceps tendon was cut. Berg scissors was then used for release of the interval all the way up to the glenoid. Peel back of the subscapularis tendon was then done and dislocation of the humeral head was done. Guide pin was then placed down at the upper outer edge of the rotator cuff and greater tuberosity down the canal. Opening reamer was then used and the neck cut was then placed at 30 degrees of retroversion. It was completed and was found to have an adequate neck cut. At this time, attention was turned to the glenoid. Retractors were placed both anterior and posterior. Glenoid was freed both inferiorly and circumferentially at the labrum around it. They had good visualization. Guide pin was then placed in a center-center position in the glenoid. There was noted to be no real retroversion or anteversion of the glenoid. At this time, central reamer was then used and then the peripheral reamer was used for the glenoid and was found to have adequate bone. The small glenoid base plate was then impacted into place. A central 15 mm screw and inferior 30 mm locking screw and a superior 24 mm locking screw were then placed. It was found to have adequate fixation. Next, attention was turned back to the humerus size 6. We were able to broach up to a size 6 broach and this was placed in roughly 30 degrees of retroversion. At this time, the 36+ 4 mm glenosphere was then impacted into place. The trial components were 135 degrees angle were then placed on the humerus and the humerus was reduced. It was found during the reaming of the humeral side that we did need the right offset secondary to the patient's small humeral head. This was brought through range of motion once it was reduced and found to have adequate tension on the deltoid along with full range of motion with no instability noted. At this time, it was dislocated. A size 6 humeral stem along with the 135 degree glenoid base plate was then impacted into place. A +3 mm liner was then impacted into place till the end of shoulder was reduced. At this time, 1 L dilute Betadine solution was irrigated through the shoulder a little along with 3 L pulse lavage irrigation with Ancef. Subscapularis could not be repaired as the patient had significant tightening and lateralization of the shoulder compared to previous and the subscapularis was too tight. At this time, the deltopectoral interval was closed using FiberWire. 2-0 Vicryl was used subcutaneously and Prineo was used for the skin. The patient tolerated the procedure well and sent to PACU in stable condition. MADIE /[id number]
--- NOTE | 2017-03-03 15:53 | PCM.DCSUM1 ---
Discharge Summary - Hospital Course Brief History: Jake is an 89 yo male who underwent left reverse total shoulder arthroplasty with with Dr. Bo on 02-23-2017. The procedure was completed under general anesthesia with regional block. The pt tolerated the procedure well and was admitted to the Medical-Surgical Unit. Medical management was provided by the Hospitalist service. The pt's Hospital course was uneventful. The pt's Hgb on POD#1 was 12.2. On POD#1, 325mg ASA daily was initiated for VTE prophylaxis. A Mepilex dressing was placed at the incision site at the time of surgery and remained clean and dry. The pt participated in P.T. and O.T. and progressed well. Bone & Joint reverse TSA protocol. On POD#1 , the pt was deemed appropriate to discharge to home with his family. He will attend outpatient therapy. - Discharge Data Discharge Date: 02/24/17 Discharge Disposition: Home, Self-Care 01 Condition: Good - Patient Summary/Data Operative Procedure(s) Performed: left reverse total shoulder arthroplasty Consults: Consultations 02/23/17 10:11 Consult to Physician [CONS] Routine OT Evaluation and Treatment [CONS] Routine 02/23/17 10:15 PT Evaluation and Treatment [CONS] Routine - Patient Instructions Diet: Usual Diet as Tolerated Activity: Apply Ice, As Tolerated, Elevate Extremity Activity, Other: No use of the surgical arm. Driving: Do Not Drive Showering/Bathing: May Shower Wound/Incision Care: Keep Operative Site/Wound Site Clean and Dry, Do NOT Change Dressing Notify Provider of: Fever, Increased Pain, Swelling and Redness, Drainage, Nausea and/or Vomiting Other/Special Instructions: Please get up and moving around every hour while awake. This helps to prevent blood clots. Please have help with mobility as needed. Please take a 325mg ASPIRIN DAILY. This also helps to prevent blood clots. You may schedule for P.T. Use the pain medication as needed. The medication may cause drowsiness and constipation. Contact your primary care provider for instructions if you are constipated. You may use a stool softener like docusate sodium or Colace 100mg twice daily and/or a laxative like Miralax daily for constipation. Wear the DON hose during the day and you may remove these at night. Place ice to the shoulder often. Place a towel between your skin and the blue pad. Schedule an appointment with your primary care provider for 'routine post-op care'. Call the Clinic with questions or concerns - [phone]. - Discharge Plan Prescriptions/Med Rec: Acetaminophen/HYDROcodone [[place] 325-5 MG] 1 - 2 tab PO Q4H PRN #60 tablet PRN Reason: Pain Aspirin [Ecotrin] 325 mg PO DAILY #40 tab.ec Home Medications: Home Meds Bimatoprost [LUMIGAN 0.01% Ophth Soln] 1 drop EYEBOTH BEDTIME 02/20/17 [History] Levothyroxine [Synthroid] 50 mcg PO DAILY 02/20/17 [History] Pantoprazole Sodium [Protonix] 40 mg PO DAILY 02/20/17 [History] Timolol Maleate 1 drop EYEBOTH DAILY 02/20/17 [History] Antiox#10/Om3/DHA/EPA/Lut/Zeax [I-Caps with Lutein-[place] 3 SFG] 1 tab PO DAILY 02/23/17 [History] Carboxymethylcellulose Sodium [Refresh Tears 0.5%] 1 drop EYEBOTH DAILY PRN [History] Cholecalciferol (Vitamin D3) [Vitamin D3] 5,000 unit PO DAILY 02/23/17 [History] Loratadine [Allergy Relief] 10 mg PO DAILY PRN 02/23/17 [History] [place]-3/DHA/Epa/Fish Oil [Fish Oil 500 MG Softgel] 500 mg PO DAILY 02/23/17 [ History] Acetaminophen/HYDROcodone [[place] 325-5 MG] 1 - 2 tab PO Q4H PRN #60 tablet 02/24 [Rx] Aspirin [Ecotrin] 325 mg PO DAILY #40 tab.ec 02/24/17 [Rx] Patient Handouts: Shoulder Joint Replacement, Shoulder Joint Replacement, Care After Referrals: Annabel Jj PA-C [Physician Itinerant Teacher Assistant] - 03/03/17 11:00 am (Please follow up with Physician Assisted Annabel Jj on March 03, 2017 at 1100AM and March 10, 2017 at 1100AM) - Patient Data Vitals - Most Recent: Last Vital Signs Temp 99.0 F 02/24/17 11:57 Pulse 61 02/24/17 11:57 Resp 15 02/24/17 11:57 BP 104/61 02/24/17 11:57 Pulse Ox 96 02/24/17 11:57 Weight - Most Recent: 130 lb 1.6 oz Med Orders - Current: Current Medications Discontinued Medications Hydrocodone Bitart/Acetaminophen ([place] 325-5 Mg) 1 - 2 tab PO Q4H PRN PRN Reason: Pain Last Admin: 02/24/17 10:16 Dose: 1 tab Aspirin (Ecotrin) 325 mg PO DAILY [facility] Last Admin: 02/24/17 09:49 Dose: 325 mg Bisacodyl (Dulcolax) 5 mg PO DAILY PRN PRN Reason: Constipation Bupivacaine HCl (Marcaine 0.25%) Confirm Administered Dose 30 ml .ROUTE .STK- MED ONE Stop: 02/23/17 07:52 Last Admin: 02/23/17 09:55 Dose: 30 ml Cefazolin Sodium (Ancef) Confirm Administered Dose 2 gm .ROUTE .STK-MED ONE Stop: 02/23/17 07:52 Last Admin: 02/23/17 09:51 Dose: 2 gm Cefazolin Sodium (Ancef) Confirm Administered Dose 2 gm .ROUTE .STK-MED ONE Stop: 02/23/17 07:51 Diphenhydramine HCl (Benadryl) 12.5 mg IVPUSH Q6H PRN PRN Reason: pruritis Stop: 02/23/17 13:00 Diphtheria/Tetanus/Acell Pertussis (Boostrix) 0.5 ml IM .ONCE ONE Stop: 02/23/17 15:18 Diphtheria/Tetanus/Acell Pertussis (Boostrix) 0.5 ml IM .ONCE ONE Stop: 02/24/17 14:46 Last Admin: 02/24/17 14:52 Dose: 0.5 ml Docusate Sodium (Colace) 100 mg PO BID [facility] Last Admin: 02/24/17 09:49 Dose: 100 mg Ephedrine Sulfate (Ephedrine In Ns) Confirm Administered Dose 25 mg .ROUTE .STK- MED ONE Stop: 02/23/17 08:46 Ephedrine Sulfate (Ephedrine In Ns) Confirm Administered Dose 25 mg .ROUTE .STK- MED ONE Stop: 02/23/17 09:38 Epinephrine HCl (Adrenalin 1:1000) Confirm Administered Dose 1 mg .ROUTE .STK- MED ONE Stop: 02/23/17 07:11 Famotidine (Pepcid) 20 mg PO Q12H [facility] Last Admin: 02/23/17 13:37 Dose: Not Given Fentanyl (Sublimaze) Confirm Administered Dose 100 mcg .ROUTE .STK-MED ONE Stop: 02/23/17 07:28 Fentanyl (Sublimaze) Confirm Administered Dose 100 mcg .ROUTE .STK-MED ONE Stop: 02/23/17 07:48 Fentanyl (Sublimaze) 50 mcg IVPUSH Q5M PRN PRN Reason: Pain Stop: 02/23/17 13:00 Lactated Ringer's (Ringers, Lactated) 1,000 mls @ 125 mls/hr IV ASDIRECTED [facility] Last Admin: 02/23/17 07:39 Dose: 125 mls/hr Lidocaine HCl (Xylocaine-Mpf 1%) Confirm Administered Dose 2 mls @ as directed .ROUTE .STK-MED ONE Stop: 02/23/17 07:27 Lidocaine HCl (Xylocaine-Mpf 1%) Confirm Administered Dose 4 mls @ as directed .ROUTE .STK-MED ONE Stop: 02/23/17 07:48 Lactated Ringer's (Ringers, Lactated) Confirm Administered Dose 1,000 mls @ as directed .ROUTE .STK-MED ONE Stop: 02/23/17 08:56 Lactated Ringer's (Ringers, Lactated) Confirm Administered Dose 1,000 mls @ as directed .ROUTE .STK-MED ONE Stop: 02/23/17 09:19 Cefazolin Sodium/Dextrose 2 gm (/ Premix) 50 mls @ 100 mls/hr IV Q8H [facility] Stop: 02/24/17 08:29 Last Admin: 02/24/17 09:51 Dose: 100 mls/hr Iodine (Iodine 2% Mild Tincture) Confirm Administered Dose 30 ml .ROUTE .STK- MED ONE Stop: 02/23/17 07:52 Last Admin: 02/23/17 09:49 Dose: 18 ml Latanoprost (Xalatan 0.005% Ophth Soln) 0 ml EYEBOTH BEDTIME [facility] Last Admin: 02/23/17 21:05 Dose: 1 drop Levothyroxine Sodium (Synthroid) 50 mcg PO ACBREAKFAST [facility] Last Admin: 02/24/17 06:40 Dose: 50 mcg Lidocaine/Sodium Bicarbonate (Buffered Lidocaine 1% In Ns 8.4%) 0.25 ml IV ONETIME PRN PRN Reason: Prior to IV Start Last Admin: 02/23/17 07:39 Dose: 0.25 ml Magnesium Hydroxide (Milk Of Magnesia) 30 ml PO BID PRN PRN Reason: Constipation Midazolam HCl (Versed 1 Mg/Ml) Confirm Administered Dose 2 mg .ROUTE .STK-MED ONE Stop: 02/23/17 07:28 Morphine Sulfate (Morphine) 2 mg IVPUSH Q2H PRN PRN Reason: Breakthrough Pain Multivitamins (Thera) 1 each PO WITHBREAKFAST [facility] Last Admin: 02/24/17 06:40 Dose: 1 each Naloxone HCl (Narcan) 0.1 mg IVPUSH Q5M PRN PRN Reason: Oversedation Stop: 02/23/17 10:27 Ondansetron HCl (Zofran) Confirm Administered Dose 4 mg .ROUTE .STK-MED ONE Stop: 02/23/17 10:09 Ondansetron HCl (Zofran) 4 mg IVPUSH ONETIME PRN PRN Reason: Nausea/Vomiting Stop: 02/23/17 13:00 Pantoprazole Sodium (Protonix) 40 mg PO DAILY@0700 [facility] Last Admin: 02/24/17 06:41 Dose: 40 mg Propofol (Diprivan 20 Ml) Confirm Administered Dose 200 mg .ROUTE .STK-MED ONE Stop: 02/23/17 07:48 Rocuronium [place] (Zemuron) Confirm Administered Dose 50 mg .ROUTE .STK-MED ONE Stop: 02/23/17 07:48 Ropivacaine (Naropin 0.5%) Confirm Administered Dose 30 ml .ROUTE .STK-MED ONE Stop: 02/23/17 07:11 Senna (Senna) 8.6 mg PO BID PRN PRN Reason: Constipation Sodium Chloride (Saline Flush) 10 ml FLUSH ASDIRECTED PRN PRN Reason: Keep Vein Open Sodium Chloride (Saline Flush) 10 ml FLUSH ASDIRECTED PRN PRN Reason: Keep Vein Open Stop: 02/23/17 23:00 Timolol Maleate (Timoptic-Xe 0.5% Ophth Gel) 0 ml EYEBOTH BEDTIME [facility] Last Admin: 02/24/17 10:15 Dose: 1 drop Tranexamic Acid (Cyklokapron) Confirm Administered Dose 1,000 mg .ROUTE .[facility] [employer] ONE Stop: 02/23/17 07:51 Last Admin: 02/23/17 10:03 Dose: 1,000 mg *Q Meaningful Use (DIS) - VTE *Q VTE Criteria *Q: - Stroke *Q Stroke Criteria *Q: - AMI *Q AMI Criteria *Q:
== END 2017-02-24 15:00 | disposition home or self-care (01) | DRG 483 ==
LOC: JD.MS 06:52
PROVIDERS: ADMIT Orthopaedic Surgery; ATTEND Orthopaedic Surgery
PROC: 0RRK00Z Replacement of Left Shoulder Joint with Reverse Ball and Socket Synthetic Substitute, Open Approach (ICD-10-PCS; principal; 2017-02-23)
DX: M19.012 Primary osteoarthritis, left shoulder (principal); R00.1 Bradycardia, unspecified; E03.9 Hypothyroidism, unspecified; H40.9 Unspecified glaucoma; Z91.09 Other allergy status, other than to drugs and biological substances; Z79.899 Other long term (current) drug therapy; Z87.19 Personal history of other diseases of the digestive system; Z23 Encounter for immunization; M25.512 Pain in left shoulder
CPT/HCPCS: 01630; 36415; 64415; 73020-26-LT; 73020-LT; 76000; 76000-26; 80053; 85025; 87641; 90471; 90715; 97110-GP; 97116-GP; 97140-GP; 97161-GP; 97166-GO; 97535-GO; A9270-GY; C1713; C1776; J0171; J0690; J2250; J2405; J2704; J2795; J3010; J3490; J7050; J7120